=== PATIENT | female | born 1980 | race Caucasian/White ===

== ENCOUNTER 2017-01-12 08:00 | Outpatient (RCR) | payer MEDICARE, MEDICAID ==
[~2017-01-12 08:00] MED LIST: ADVIL LIQUI-GE200 MG PO; AMRIX15 MG; BENADRYL25 M1 PO; CARDIZEM LA240 MG PO; CEPHALEXIN500 M1 PO; CIPRO HC OTIC S10 ML OT; CORTISPORIN OTI10 M1 OT; CYMBALTA 30MG30 MG PO; CYMBALTA20 MG PO; DESYREL 50MG50 MG PO; FOLIC ACID 40400 MCG PO; HEADACHE MED; IBU800 M1 PO; KEPPRA500 MG PO; LINZESS145CAP PO; LORTAB 5/500 501 TAB PO; NORETHINDRONE AC5 MG; PRILOSEC10 MG PO; TOPAMAX50 MG PO; TRILEPTAL; VITAMIN D1000 IU PO; ZITHROMAX Z PA250 MG PO
== END 2017-01-14 08:56 | disposition home or self-care (01) ==
LOC: WSOT 08:00
DX: Z47.89 Encounter for other orthopedic aftercare (principal); G56.22 Lesion of ulnar nerve, left upper limb
CPT/HCPCS: G8987-GO; G8988-GO; G8989-GO

== ENCOUNTER 2019-08-01 11:00 | Outpatient (RCR) | payer MEDICARE, MEDICAID | END 2019-08-13 | disposition home or self-care (01) | LOC: WSOT | DX: G56.02 Carpal tunnel syndrome, left upper limb (principal) ==

== ENCOUNTER 2019-10-19 12:41 | Emergency (ER) | payer MEDICARE, MEDICAID ==
[~2019-10-19] VITALS: Ht 167.6 cm; Wt 98.4 kg
[2019-10-19 12:50] VITALS: TEMP 97.9
[2019-10-19] MEDS ORDERED: FLEXERIL 1010 MG/TAB PO (13:28)
[2019-10-19 15:08] LABS: BASO # 0.1 (0.0-0.2); BASO % 0.7 % (0.0-2.0); EOS # 0.3 (0.0-0.7); GRAN # 5.5 (1.4-6.5); GRAN % 64.7 % (42.2-75.2); HEMATOCRIT 44.9 % (37.0-47.0); LYMPH % 23.3 % (20.0-51.0); MEAN CELL VOLUME 92 fl (80.0-100.0); MEAN CORPUSCULAR HEMOGLOBIN 31 pg (27.0-31.0); MEAN CORPUSCULAR HGB CONC 33 g/dl (33.0-37.0); MEAN PLATELET VOLUME 8.4 fl (7.4-10.4); MONO # 0.6 (0.1-0.6); MONO % 7.5 % (1.7-9.3); PLATELET COUNT 393 K/mm3 (130-400); RED BLOOD COUNT 4.88 M/mm3 (4.10-5.30)
[2019-10-19 15:25] LABS: ALBUMIN 4.1 gm/dL (3.5-5.0); BILIRUBIN,TOTAL 0.2 mg/dL (0.0-1.0); C-REACTIVE PROTEIN 0.7 mg/dL (0.0-0.9); CALCIUM 8.8 mg/dL (8.4-10.2); CREATININE, serum 0.98 (0.52-1.25); POTASSIUM 4.2 mmol/L (3.4-5.0); TOTAL PROTEIN 7.2 gm/dL (6.4-8.2)
[2019-10-19 16:08] VITALS: BP 111/62; PULSE 89
== END 2019-10-19 16:08 | disposition home or self-care (01) ==
LOC: COL.ER 12:41
PROVIDERS: Family Medicine
DX: R10.13 Epigastric pain (principal); Z87.19 Personal history of other diseases of the digestive system
CPT/HCPCS: C9113; J2405; J7030

== ENCOUNTER 2020-05-14 22:03 | Emergency (ER) | payer MEDICARE, MEDICAID ==
[~2020-05-14] VITALS: Ht 170.2 cm; Wt 97.7 kg
[~2020-05-14 22:03] MED LIST changes: +FLEXERIL 1010 MG/TAB PO
[2020-05-14] MEDS ORDERED: PRINIVIL10 MG PO (22:27)
[2020-05-14] MEDS ORDERED: CYMBALTA 30MG30 MG PO (22:28)
[2020-05-14] MEDS ORDERED: LINZESS290CAP (22:29)
[2020-05-14 22:52] LABS: BASO # 0.1 (0.0-0.2); BASO % 0.6 % (0.0-2.0); EOS # 0.5 (0.0-0.7); EOS % 4.4 % (0-4.0); GRAN # 7.3 (1.4-6.5); GRAN % 62.1 % (42.2-75.2); HEMOGLOBIN 13.2 g/dl (12.5-16.0); LYMPH # 2.7 (1.2-3.4); LYMPH % 23.2 % (20.0-51.0); MEAN CELL VOLUME 91 fl (80.0-100.0); MEAN CORPUSCULAR HEMOGLOBIN 31 pg (27.0-31.0); MEAN CORPUSCULAR HGB CONC 34 g/dl (33.0-37.0); MEAN PLATELET VOLUME 8.2 fl (7.4-10.4); MONO % 8.9 % (1.7-9.3); PLATELET COUNT 287 K/mm3 (130-400); REDCELL DISTRIBUTION WIDTH-CV 11.9 % (11.5-14.5)
[2020-05-14 23:05] LABS: ALBUMIN 3.9 gm/dL (3.5-5.0); BILIRUBIN,TOTAL 0.4 mg/dL (0.0-1.0); C-REACTIVE PROTEIN 1.8 mg/dL (0.0-0.9); CALCIUM 9.1 mg/dL (8.4-10.2); CREATININE, serum 0.85 (0.52-1.25); POTASSIUM 4.1 mmol/L (3.4-5.0)
[2020-05-15 00:15] LABS: COLLECTION METHOD CLEAN CATCH
[2020-05-15 00:24] LABS: PH 6 (5-8); SQUAMOUS EPITHELIAL 0-2 /hpf; URINE APPEARANCE Clear; URINE BACTERIA None Seen /hpf; URINE BILIRUBIN Negative (NEGATIVE); URINE BLOOD 1+ (NEGATIVE); URINE COLOR Straw; URINE GLUCOSE Negative (NEGATIVE); URINE KETONE Negative (NEGATIVE); URINE LEUKOCYTE ESTERASE Negative (NEGATIVE); URINE NITRATE Negative (NEGATIVE); URINE PROTEIN(semi-quant) Negative (NEGATIVE); URINE RBC 0-2 /hpf; URINE UROBILINOGEN Negative (NEGATIVE)
[2020-05-15] MEDS ORDERED: ZOFRAN 4MG T4 MG/TAB PO (01:03)
[2020-05-15] MEDS ORDERED: NORCO 325 MG-51 TAB PO (01:03)
[2020-05-15 01:28] VITALS: BP 136/72; PULSE 70; TEMP 97.1
== END 2020-05-15 01:28 | disposition home or self-care (01) ==
LOC: COL.ER 22:03
PROVIDERS: Emergency Medicine
DX: R10.9 Unspecified abdominal pain (principal); G89.18 Other acute postprocedural pain; G40.909 Epilepsy, unspecified, not intractable, without status epilepticus; Z90.710 Acquired absence of both cervix and uterus
CPT/HCPCS: J2270; J2405; J7030; Q9967

== ENCOUNTER 2020-09-20 14:52 | Emergency (ER) | payer MEDICARE, MEDICAID ==
[~2020-09-20] VITALS: Ht 170.2 cm; Wt 104.5 kg
[~2020-09-20 14:52] MED LIST changes: +LINZESS290CAP; +NORCO 325 MG-51 TAB PO; +PRINIVIL10 MG PO; +ZOFRAN 4MG T4 MG/TAB PO
[2020-09-20 14:58] VITALS: TEMP 98.3
[2020-09-20 15:29] LABS: BASO # 0.1 (0.0-0.2); BASO % 0.7 % (0.0-2.0); EOS # 0.2 (0.0-0.7); EOS % 2.8 % (0-4.0); GRAN # 4.2 (1.4-6.5); GRAN % 59.7 % (42.2-75.2); HEMATOCRIT 39.8 % (37.0-47.0); HEMOGLOBIN 13.7 g/dl (12.5-16.0); LYMPH % 28.5 % (20.0-51.0); MEAN CELL VOLUME 89 fl (80.0-100.0); MEAN CORPUSCULAR HEMOGLOBIN 31 pg (27.0-31.0); MEAN CORPUSCULAR HGB CONC 34 g/dl (33.0-37.0); MEAN PLATELET VOLUME 8.6 fl (7.4-10.4); MONO # 0.6 (0.1-0.6); PLATELET COUNT 343 K/mm3 (130-400); RED BLOOD COUNT 4.45 M/mm3 (4.10-5.30); REDCELL DISTRIBUTION WIDTH-CV 11.5 % (11.5-14.5)
[2020-09-20 15:37] LABS: PARTIAL THROMBOPLASTIN TIME 32.3 SECONDS (26.0-37.0)
[2020-09-20 15:42] LABS: ALANINE AMINOTRANSFERASE 23 U/L (4-34); ALBUMIN 4.4 gm/dL (3.5-5.0); ALKALINE PHOSPHATASE 98 U/L (50-136); ANION GAP 9 mmol/L (7-16); AST,SGOT 31 U/L (15-37); BILIRUBIN,TOTAL 0.5 mg/dL (0.0-1.0); BLOOD UREA NITROGEN 17 mg/dL (7-17); CALCIUM 8.8 mg/dL (8.4-10.2); CARBON DIOXIDE 21 mmol/L (22-30); CHLORIDE 108 mmol/L (98-107); CREATININE, serum 0.98 (0.52-1.25); GLUCOSE 92 mg/dL (74-106); POTASSIUM 4.3 mmol/L (3.4-5.0); SODIUM 138 mmol/L (137-145); TOTAL PROTEIN 7.7 gm/dL (6.4-8.2)
[2020-09-20 16:22] LABS: TROPONIN-I < 0.012 ng/mL (0.000-0.035)
[2020-09-20 19:10] VITALS: BP 106/67; PULSE 68
== END 2020-09-20 19:12 | disposition home or self-care (01) ==
LOC: COL.ER 14:52
PROVIDERS: Family Medicine
DX: R09.1 Pleurisy (principal); I10 Essential (primary) hypertension; Z88.0 Allergy status to penicillin
CPT/HCPCS: C9113; J1885; Q9967

== ENCOUNTER 2022-02-10 10:20 | Day surgery (SDC) | payer MEDICARE, MEDICAID ==
[~2022-02-10] VITALS: Ht 167.6 cm; Wt 106.1 kg
[~2022-02-10 10:20] MED LIST changes: +KEPPRA 500MG500 MG PO; -KEPPRA500 MG PO; -LINZESS290CAP; +LINZESS290CAP PO; -VITAMIN D1000 IU PO; +VITAMIN D31000 I1 PO
[2022-02-10 10:36] VITALS: BP 133/86; PULSE 110; TEMP 97.6
[2022-02-10] MEDS ORDERED: TRILEPTAL600 MG PO (10:43)
[2022-02-10] MEDS ORDERED: TRILEPTAL 300M300 MG PO (10:43)
[2022-02-10] MEDS ORDERED: PROTONIX 40MG T40 MG PO (10:45)
[2022-02-10] MEDS ORDERED: LATUDA40 MG PO (10:45)
[2022-02-10] MEDS ORDERED: CRESTOR20 MG PO (10:46)
[2022-02-10] MEDS ORDERED: NURTEC ODT75 MG PO (10:47)
[2022-02-10 11:45] VITALS: BP 114/45; PULSE 94; TEMP 98.2
--- NOTE | 2022-02-10 11:45 | NUR ---
The patient arrived back to [facility] from the endoscopy suite at this time. The patient ambulated from the cart to the recliner in her room with the stand by assistance of two nurses and appeared to tolerate the activity well. Post procedure vital signs were started at this time. The patient's mother is at her bedside at this time. The patient agrees to try some apple juice and a muffin at this time. Will continue to monitor the patient.
[2022-02-10 12:00] VITALS: BP 107/76; PULSE 93
--- NOTE | 2022-02-10 12:00 | NUR ---
The patient appears to be tolerating the juice and muffin well. Vital signs appear stable. The patient is waiting to speak with Dr. Sánchez prior to discharge.
[2022-02-10 12:15] VITALS: BP 121/71; PULSE 99
--- NOTE | 2022-02-10 12:15 | NUR ---
Dr. Sánchez has been in to discuss the findings of the procedure with the patient and her mother. The patient now verbalizes a desire to be discharged home.
--- NOTE | 2022-02-10 12:30 | NUR ---
Discharge instructions were reviewed with the patient and her mother at this time. They both verbalized understanding and have no questions for the nurse at this time. The patient's IV to her right forearm was removed and a pressure dressing was applied to the site.
--- NOTE | 2022-02-10 12:45 | NUR ---
The patient was escorted out via wheelchair to a private vehicle by JONATHON Tucker. The patient's belongings and discharge paperwork were sent with her. The patient's mother is present to drive her home.
== END 2022-02-10 12:45 | disposition home or self-care (01) ==
LOC: SDCO 10:20
DX: K21.9 Gastro-esophageal reflux disease without esophagitis (principal); T18.128A Food in esophagus causing other injury, initial encounter; K22.89 Other specified disease of esophagus; K31.84 Gastroparesis; K44.9 Diaphragmatic hernia without obstruction or gangrene; G40.909 Epilepsy, unspecified, not intractable, without status epilepticus
CPT/HCPCS: J2704; J7030

== ENCOUNTER → 2023-01-05 | Outpatient (CLI) | payer MEDICARE, MEDICAID ==
[~2023-01-05] MED LIST changes: +CRESTOR20 MG PO; +LATUDA40 MG PO; +NURTEC ODT75 MG PO; +PROTONIX 40MG T40 MG PO; +TRILEPTAL 300M300 MG PO; +TRILEPTAL600 MG PO
== END ==
LOC: COL.RAD 12:36
DX: Z12.31 Encounter for screening mammogram for malignant neoplasm of breast (principal)

== ENCOUNTER 2023-02-11 07:32 | Day surgery (SDC) | payer MEDICARE, MEDICAID ==
[~2023-02-11] VITALS: Ht 167.6 cm; Wt 103.8 kg
[2023-02-11] MEDS ORDERED: MASON NATURAL2000 IU PO (07:53)
[2023-02-11] MEDS ORDERED: TOPAMAX 100MG100 M1 PO (07:55)
[2023-02-11] MEDS ORDERED: ATARAX50 MG PO (07:57)
[2023-02-11] MEDS ORDERED: PAMELOR 25MG25 MG PO (08:13)
[2023-02-11 08:15] VITALS: BP 110/75; PULSE 109; TEMP 97
[2023-02-11] MEDS ORDERED: AJOVY225 MG/1.5 SQ (08:16)
[2023-02-11] MEDS ORDERED: UBRELVY50 MG PO (08:17)
[2023-02-11 09:20] VITALS: BP 112/73; PULSE 87; TEMP 97
--- NOTE | 2023-02-11 09:20 | NUR ---
0920 PATIENT RETURNS TO ROOM 5 VIA CART. PATIENT IS DROWSY BUT ALERTS TO VERBAL STIMULI. PATIENT AMBULATES TO RECLINER WITH THE ASSISTANCE OF 2 NURSES. RESPIRATIONS EVEN AND UNLABORED. VITAL SOGNS OBTAINED. PATIENT MOM IS IN ROOM. PATIENT REQUESTED WATER AND A MUFFIN, NO DIFFICULTIES SWALLOWING. 0945 THIS NURSE REVIEWED DISCHARGE INSTRUCTIONS WITH PATIENT AND PATIENT MOM. BOTH VERBALIZED UNDERSTANDING. 0950 DOCTOR IN TO SPEAK WITH PATIENT. 0955 DISCONTINUED IV FROM LEFT AC WITH NO DIFFICULTIES. 1010 PATIENT DISCHARGES FROM UNIT IN STABLE CONDITION. PATIENT MOTHER DROVE PATIENT HOME.
[2023-02-11 09:35] VITALS: BP 94/56; PULSE 91
[2023-02-11 09:50] VITALS: BP 111/67; PULSE 92
== END 2023-02-11 09:20 | disposition home or self-care (01) ==
LOC: SDCO 07:32
DX: K31.7 Polyp of stomach and duodenum (principal); K31.89 Other diseases of stomach and duodenum
CPT/HCPCS: J2704; J7120

== ENCOUNTER 2024-08-29 13:20 | Observation (INO) | payer MEDICAID ==
[~2024-08-29] VITALS: Ht 167.6 cm; Wt 103.0 kg
[~2024-08-29 13:20] MED LIST changes: +AJOVY225 MG/1.5 SQ; +ATARAX50 MG PO; +CYMBALTA 60MG60 MG PO; +MASON NATURAL2000 IU PO; +PAMELOR 25MG25 MG PO; +TOPAMAX 100MG100 M1 PO; +UBRELVY50 MG PO
[2024-08-29 15:57] LABS: HEMATOCRIT 40.6 % (37.0-47.0); HEMOGLOBIN 14.3 g/dl (12.5-16.0); MEAN CELL VOLUME 86 fl (80.0-100.0); MEAN CORPUSCULAR HEMOGLOBIN 30 pg (27-31); MEAN CORPUSCULAR HGB CONC 35 g/dl (33.0-37.0); MEAN PLATELET VOLUME 8.1 fl (7.4-10.4); PLATELET COUNT 326 K/mm3 (130-400); RED BLOOD COUNT 4.73 M/mm3 (4.10-5.30); REDCELL DISTRIBUTION WIDTH-CV 11.6 % (11.5-14.5)
[2024-08-29 16:18] LABS: ALBUMIN 3.6 g/dL (3.5-5.0); BILIRUBIN,TOTAL 0.2 mg/dL (0.2-1.2); CALCIUM 9.1 mg/dL (8.4-10.2); CREATININE, serum 0.87 mg/dL (0.57-1.11); POTASSIUM 4.1 mEq/L (3.5-4.5); TOTAL PROTEIN 6.9 g/dl (6.2-8.1)
[2024-08-29] MEDS ORDERED: NS 100 ML IV SCH (16:31)
[2024-08-29] MEDS ORDERED: Iohexol 300 - 100 ML VIAL IV ONE (16:32)
[2024-08-29 16:36] LABS: EOSINOPHIL 3 % (0-4); LYMPHOCYTE 25 % (20.0-51.0); NEUTROPHILS 66 % (42.0-75.2)
[2024-08-29] MEDS ORDERED: Ondansetron 4 MG/2 ML VIAL IV PRN (17:15)
[2024-08-29] MEDS ORDERED: LR 1,000 ML IV SCH (17:15)
[2024-08-29] MEDS ORDERED: metroNIDAZOLE 100 ML IV SCH (17:15)
[2024-08-29] MEDS ORDERED: Cefepime 1 G in Water For Injection,Sterile 10 ML IV SCH (17:30)
[2024-08-29] MEDS ORDERED: hydrALAZINE 20 MG/ML 1 ML VIAL IV PRN (17:30)
[2024-08-29] MEDS ORDERED: QULIPTA60 MG PO (17:42)
[2024-08-29] MEDS ORDERED: ADVIL200 MG PO (17:43)
[2024-08-29 18:09] VITALS: BP 135/72; PULSE 98; TEMP 98.2
[2024-08-29 19:48] VITALS: BP 120/84; PULSE 91; TEMP 98.3
[2024-08-29 20:00] VITALS: BP_SYST 120
[2024-08-29] MEDS ORDERED: levETIRAcetam 500 MG TAB PO SCH (21:00)
[2024-08-29] MEDS ORDERED: Lurasidone 20 MG TABLET PO SCH (21:00)
[2024-08-29] MEDS ORDERED: OXcarbazepine 300 MG TAB PO SCH (21:00)
[2024-08-29 23:46] VITALS: BP 106/70; PULSE 87; TEMP 97.9
[2024-08-30] VITALS (10 sets, daily range): BP systolic 91–137; BP diastolic 44–86; PULSE 80–86; TEMP 97.9–98.5
--- NOTE | 2024-08-30 05:26 | NUR ---
PT NPO, IVF INFUSING PER PIV, REPORTS ONLY MINIMAL ABDOMINAL PAIN, NO DIARRHEA SINCE PRIOR TO ADMISSION. NO N/V REPORTED. UP TO RESTROOM INDEPENDENTLY, MOM STAYED THE NIGHT.
[2024-08-30 06:21] LABS: HEMOGLOBIN 12.4 g/dl (12.5-16.0); MEAN CELL VOLUME 83 fl (80.0-100.0); MEAN CORPUSCULAR HEMOGLOBIN 30 pg (27-31); MEAN CORPUSCULAR HGB CONC 36 g/dl (33.0-37.0); PLATELET COUNT 270 K/mm3 (130-400); RED BLOOD COUNT 4.11 M/mm3 (4.10-5.30); REDCELL DISTRIBUTION WIDTH-CV 11.4 % (11.5-14.5)
[2024-08-30 06:31] LABS: HEMATOCRIT 34.1 % (37.0-47.0)
[2024-08-30 06:36] LABS: CALCIUM 8.4 mg/dL (8.4-10.2); CREATININE, serum 0.77 mg/dL (0.57-1.11); POTASSIUM 3.8 mEq/L (3.5-4.5)
[2024-08-30 06:57] LABS: THYROID STIMULATING HORMONE 2.207 uIU/mL (0.350-4.940)
[2024-08-30] MEDS ORDERED: Pantoprazole 40 MG in NS 10 ML IV SCH (09:00)
[2024-08-30] MEDS ORDERED: Influenza Virus Vaccine, Trivalent '24-25 0.5 ML SYRINGE IM SCH (09:00)
[2024-08-30 09:22] LABS: EOSINOPHIL 2 % (0-4); LYMPHOCYTE 29 % (20.0-51.0); NEUTROPHILS 64 % (42.0-75.2); PLATELET ESTIMATE NORMAL (NORMAL)
[2024-08-30] MEDS ORDERED: OXcarbazepine 300 MG TAB PO SCH ×3 (09:58→21:00)
--- NOTE | 2024-08-30 10:37 | NUR ---
municipal maintenance worker and social work student Genie sparrow with patient and patients mother Evelina (p# [phone]) at bedside to discuss discharge planning. Patient stated that she lives with her mother and her stepfather at home in [facility] outside of [place]. Patient stated that her PCP is Dr. Giron and that her preferred pharmacy is [facility]. Patient denies using any DME at home and stated that she is independent in ADLs but that her mother has to drive her to and from appointments. Patient denied having any DPOA paperwork and declined any additional information at this time. Patient states no concerns regarding discharge. Plan: D/C Home.
--- NOTE | 2024-08-30 10:53 | NUR ---
PATIENT LYING IN BED. AAOX4. HEAD TO TOE ASSESSMENT COMPLETED. MORNING MEDS GIVEN. NO COMPLAINTS AT THIS TIME. BED IN LOWEST POSITION, CALL LIGHT IN REACH, NO SKID SOCKS ON. MOTHER AT BEDSIDE.
[2024-08-30] MEDS ORDERED: OXcarbazepine 300 MG TAB PO ONE (11:45)
--- NOTE | 2024-08-30 13:00 | NUR ---
Initial visit; Patient appeared uncomfortable to have Radial Router Operator in her room. Her mother was there with her making Radial Router Operator's visit as comfortable as possible. Radial Router Operator introduced herself and let patient and mom know she visits almost every patient at least once and is just here to see if she feels that she is being well taken care of. She said "Yes" that everyone treating her very well.
[2024-08-30] MEDS ORDERED: Ondansetron 4 MG/2 ML VIAL IV PRN (14:15)
[2024-08-30] MEDS ORDERED: PEG3350/Sod Sulf,Bicarb,Cl/KCl Oral Soln 4,000 ML Bottle PO SCH (17:30)
--- NOTE | 2024-08-30 17:45 | NUR ---
SPOKE TO DR. GOODWIN VIA PHONE, IF PATIENT IS UNABLE TO DRINK BOWEL PREP, NG TUBE CAN BE ORDERED. DR. GOODWIN ALSO OFFERED PATIENT AN ENEMA IF DESIRED. I INFORMED PATIENT AND MOTHER AT BEDSIDE OF THESE OPTIONS, PATIENT HAS BEGUN TO DRINK THE BOWEL PREP AND WILL CONSIDER THESE INTERVENTIONS. IRRITATION NOTED THE LEFT OUTER EYE AND REDNESS TO THE INNER EYE. NO DRAINAGE AT THIS TIME. PATIENT REPORTS MILD ITCHING. I INFORMED DR. HERNANDEZ, SHE RECOMMENDED SOME REFRESH EYEDROPS AT THIS TIME.
[2024-08-30] MEDS ORDERED: Carboxymethylcellulose PF Ophth 0.4 ML DROPPERETTE OP PRN (18:00)
--- NOTE | 2024-08-30 20:00 | NUR ---
PATIENT IS A&O. VSS. NO C/O PAIN OR NAUSEA. PATIENT FINISHED BOWL PREP AND IS FEQUENTLY HAVING LOOSE STOOLS. IV FLUIDS INFUSING VIA PUMP INTO RIGHT FORARM. PLAN IS FOR A COLONOSCOPY IN THE AM. TOLERATING CLEARS, NPO AT MIDNIGHT. HEAD TO TOE ASSESSMENT COMPLETE. HS MEDS GIVEN. MOM AT BEDSIDE. INDEPENDENT IN ROOM. NO OTHER NEEDS. CALL LIGHT IN REACH.
[2024-08-30] MEDS ORDERED: Topiramate 100 MG TAB PO SCH (21:00)
[2024-08-31] VITALS (14 sets, daily range): BP systolic 103–154; BP diastolic 59–91; PULSE 82–101; TEMP 97.7–98
[2024-08-31 04:29] LABS: HEMOGLOBIN 12.3 g/dl (12.5-16.0); MEAN CELL VOLUME 85 fl (80.0-100.0); MEAN CORPUSCULAR HEMOGLOBIN 30 pg (27-31); MEAN CORPUSCULAR HGB CONC 35 g/dl (33.0-37.0); MEAN PLATELET VOLUME 8.1 fl (7.4-10.4); PLATELET COUNT 264 K/mm3 (130-400); RED BLOOD COUNT 4.08 M/mm3 (4.10-5.30); REDCELL DISTRIBUTION WIDTH-CV 11.6 % (11.5-14.5)
[2024-08-31 04:32] LABS: HEMATOCRIT 34.7 % (37.0-47.0)
[2024-08-31 04:56] LABS: ANION GAP 10 mmol/L (7-16); CALCIUM 8.8 mg/dL (8.4-10.2); CHLORIDE 107 mEq/L (98-107); CREATININE, serum 0.78 mg/dL (0.57-1.11); GLUCOSE 98 mg/dL (70-99); POTASSIUM 3.6 mEq/L (3.5-4.5); SODIUM 140 mEq/L (136-145)
[2024-08-31 04:57] LABS: BLOOD UREA NITROGEN < 5 mg/dL (7-19)
[2024-08-31 05:28] LABS: EOSINOPHIL 4 % (0-4); LYMPHOCYTE 20 % (20.0-51.0); NEUTROPHILS 66 % (42.0-75.2)
[2024-08-31 05:29] LABS: PLATELET ESTIMATE NORMAL (NORMAL)
[2024-08-31] MEDS ORDERED: LR 1,000 ML IV SCH (06:00)
--- NOTE | 2024-08-31 11:29 | NUR ---
Report given to primary nurse, JONATHON Garrido. All questions entertained and answered. Care assumed by primary nurse.
[2024-08-31] MEDS ORDERED: Lidocaine PF 2% (20 MG/ML) 5 ML VIAL ONE (13:00)
--- NOTE | 2024-08-31 14:00 | NUR ---
Patient to room 348 from a procedure. A&Ox4. VSS, post op VS monitored. IV CDI, fluids by gravity. Denies pain and discomfort. Mom at the bedside. Nurse reoriented the patient. No further needs expressed. Call light within reach
[2024-08-31] MEDS ORDERED: FLAGYL500 MG PO (15:09)
[2024-08-31] MEDS ORDERED: CEFTIN500 MG PO (15:09)
--- NOTE | 2024-08-31 15:57 | NUR ---
Discharge paperwork reviewed with the patient and mom. Patient verbalized an understanding to follow doctors orders. IV removed, tip intact. Gauze and coban applied. Patient getting dressed and waiting on low fiber education from the kiln stacker. Call light within reach
--- NOTE | 2024-08-31 16:15 | NUR ---
Patient ambulated independently with the mom to awaiting vehicle. Discharge paperwork and personal belongings with the patient. No further needs expressed
== END 2024-08-31 16:15 | disposition home or self-care (01) ==
LOC: COL.ER 13:20 → SURG 17:05
PROVIDERS: Family Medicine; ADMIT Internal Medicine
DX: K52.9 Noninfective gastroenteritis and colitis, unspecified (principal); K59.09 Other constipation; G80.9 Cerebral palsy, unspecified; K51.40 Inflammatory polyps of colon without complications; K21.9 Gastro-esophageal reflux disease without esophagitis; F32.A Depression, unspecified; G40.909 Epilepsy, unspecified, not intractable, without status epilepticus; G43.709 Chronic migraine without aura, not intractable, without status migrainosus; E78.5 Hyperlipidemia, unspecified; I10 Essential (primary) hypertension; Z79.899 Other long term (current) drug therapy
CPT/HCPCS: A9270; G0378; J0692; J1836; J2470; J2704; J7120; Q9967